=== PATIENT | female | born 1990 | race American Indian/Alaskan Native ===

== ENCOUNTER 2019-01-03 15:17 | Emergency (ER) | payer MEDICAID ==
[~2019-01-03] VITALS: Ht 162.6 cm; Wt 54.4 kg
[~2019-01-03 15:17] MED LIST: AMOX-106 PO; CLIN-90 PO; DIPH-423 PO; HYDR-3965 PO; PENI500T2 PO; PRED20TA PO
[2019-01-03 15:21] VITALS: BP 154/117
[2019-01-03] MEDS ORDERED: METH4TAB3 PO (15:37)
== END 2019-01-03 15:52 | disposition home or self-care (01) ==
LOC: ER 15:18
DX: L23.7 Allergic contact dermatitis due to plants, except food (principal); G89.29 Other chronic pain; F12.90 Cannabis use, unspecified, uncomplicated; Z98.890 Other specified postprocedural states
CPT/HCPCS: 99283

== ENCOUNTER 2019-01-16 21:48 | Emergency (ER) | payer MEDICAID ==
[~2019-01-16] VITALS: Ht 162.6 cm; Wt 54.0 kg
[~2019-01-16 21:48] MED LIST changes: -CLIN-90 PO; +CLIN-96 PO; +METH4TAB3 PO
[2019-01-16 22:01] VITALS: BP 165/115
--- NOTE | 2019-01-16 23:02 | NUR ---
PT REFUSED EKG
== END 2019-01-16 23:11 | disposition left against medical advice (07) ==
LOC: ER 21:49
DX: R07.81 Pleurodynia (principal); G89.29 Other chronic pain; F12.90 Cannabis use, unspecified, uncomplicated; Z98.890 Other specified postprocedural states; Z79.2 Long term (current) use of antibiotics; Z79.899 Other long term (current) drug therapy
CPT/HCPCS: 71046; 99283

== ENCOUNTER 2019-09-16 09:48 | Emergency (ER) | payer MEDICAID ==
[~2019-09-16] VITALS: Ht 162.6 cm; Wt 62.0 kg
[~2019-09-16 09:48] MED LIST changes: -CLIN-96 PO; +CLIN-97 PO
--- NOTE | 2019-09-16 10:12 | NUR ---
ANN-MARIE DOSS AT BS
[2019-09-16 10:52] LABS: BASOPHILS # (AUTO) 0.1 X10'3 (0-0.2); EOSINOPHILS # (AUTO) 0.1 X10'3 (0-0.9); EOSINOPHILS % (AUTO) 0.7 % (0-6); HEMATOCRIT 44.8 % (35.0-45.0); LYMPHOCYTES # (AUTO) 2.6 X10'3 (1.1-4.8); LYMPHOCYTES % (AUTO) 29.6 % (21-51); MEAN CORPUSCULAR HEMOGLOBIN 31.9 PG (27.0-31.0); MEAN CORPUSCULAR HGB CONC 33.5 g/dL (33.0-36.5); MEAN CORPUSCULAR VOLUME 95.2 FL (78-98); MEAN PLATELET VOLUME 7.9 FL (7.4-10.4); MONOCYTES # (AUTO) 0.5 X10'3 (0-0.9); MONOCYTES % (AUTO) 5.4 % (2-12); NEUTROPHILS # (AUTO) 5.7 X10'3 (1.8-7.7); NEUTROPHILS % (AUTO) 63.3 % (42-75); PLATELET COUNT 267 X10'3 (140-440); WHITE BLOOD COUNT 8.9 X10'3 (4.5-11.0)
[2019-09-16 11:02] LABS: ALANINE AMINOTRANSFERASE 12 U/L (12-78); ALBUMIN 1.8 G/DL (3.4-5.0); ALBUMIN/GLOBULIN RATIO 0.4 (1.1-1.5); ALKALINE PHOSPHATASE 103 IU/L (46-116); ANION GAP 12 (8-16); ASPARTATE AMINO TRANSFERASE 36 U/L (10-37); BILIRUBIN,TOTAL 0.3 MG/DL (0.1-1.0); BLOOD UREA NITROGEN 14 MG/DL (7-18); CALCIUM 7.8 MG/DL (8.5-10.1); CHLORIDE 104 MMOL/L (99-107); CREATININE 1.74 MG/DL (0.40-0.90); GLUCOSE 96 MG/DL (70-104); POTASSIUM 3.6 MMOL/L (3.5-5.1); SODIUM 136 MMOL/L (135-145); TOTAL CARBON DIOXIDE 20.5 MMOL/L (24-32); TOTAL PROTEIN 6.4 G/DL (6.4-8.2); eGFR 34 ML/MIN
[2019-09-16 11:08] LABS: D-DIMER 12.67 MG/L FEU (0-0.50)
[2019-09-16 11:43] LABS: CLARITY,URINE CLOUDY (Clear); COLOR,URINE YELLOW (Yellow); GLUCOSE, URINE NEGATIVE (Neg); KETONES,URINE NEGATIVE (Neg); LEUKOCYTE ESTERASE ,URINE MODERATE (Neg); NITRITES, URINE NEGATIVE (Neg); OCCULT BLOOD,URINE MODERATE (Neg); PROTEIN,URINE >=300 mg/dl (Neg); URINE HCG POSITIVE (NEG); UROBILINOGEN,URINE 0.2 E.U/dL (0.2-1.0)
[2019-09-16 11:47] LABS: UA COLLECTION TYPE CLN CATCH MIDSTREAM
[2019-09-16 11:49] LABS: WBC,URINE TNTC /HPF (0-4)
[2019-09-16 11:50] LABS: BACTERIA,URINE 3+ /HPF (Neg); FINE GRANULAR CAST 0-3 /LPF (NEGATIVE); MUCUS STRANDS NONE SEEN /LPF (Neg); SQUAMOUS EPITHELIAL CELL,UR MODERATE /LPF (FEW)
[2019-09-16] MEDS ORDERED: normal saline 1000ML IV soln IVB ONE (11:50)
[2019-09-16 12:20] LABS: LACTATE DEHYDROGENASE 483 U/L (81-234); TROPONIN I < 0.04 NG/ML (0.0-0.05)
[2019-09-16] MEDS ORDERED: hyDRALAzine 10mg tablet PO STA (12:23)
[2019-09-16] MEDS ORDERED: magnesium 2GM in 50ml NS 50 ML IV ONE (12:30)
[2019-09-16] MEDS ORDERED: hydrALAZINE 20mg/ml inj. IV ONE (13:45)
[2019-09-16 16:45] VITALS: BP 151/108
== END 2019-09-16 16:19 | disposition short-term general hospital (02) ==
LOC: ER 09:48
DX: O14.92 Unspecified pre-eclampsia, second trimester (principal); O26.892 Other specified pregnancy related conditions, second trimester; K08.89 Other specified disorders of teeth and supporting structures; G89.29 Other chronic pain; F12.90 Cannabis use, unspecified, uncomplicated; Z98.890 Other specified postprocedural states; Z72.89 Other problems related to lifestyle; Z79.2 Long term (current) use of antibiotics; Z79.899 Other long term (current) drug therapy
CPT/HCPCS: 36415; 71045; 80053; 81001; 81025; 83615; 83880; 84484; 84550; 85025; 85379; 87088; 93005; 96365; 96366; 96375; 99291; J0360; J3475; J7030

== ENCOUNTER 2025-01-12 19:07 | Emergency (ER) | payer MEDICAID ==
[~2025-01-12] VITALS: Ht 162.6 cm; Wt 54.5 kg
[~2025-01-12 19:07] MED LIST changes: +CLIN-224 PO; -CLIN-97 PO
[2025-01-12 19:11] VITALS: BP 233/153; PULSE 99; RESP 18; TEMP 97.9; O2SAT 98
--- NOTE | 2025-01-12 19:30 | Physician Documentation ---
History of Present Illness ~ Chief Complaint: Medical Clearance Stated Complaint: MED CLEARANCE Time Seen by MD: 19:22 Primary Medical Doctor: [facility] Patient is a 34-year-old female brought to the emergency department by [facility] department. Patient is currently in custody [facility] department. She is here for medical clearance so that she can be taken to [facility]. Patient reports that she placed a pouch of methamphetamine into her vagina she was taken to the police department pouch was noted by the nurse at the police department the patient removed the pouch without incident. Patient reports that the methamphetamine was placed in a baggy. She reports that the entire baggy was removed and that she feels no pain discomfort or any residual issues associated with the baggy of methamphetamine placed into or removed from her vagina. Patient denies any fever chills nausea vomiting abnormal bleeding from her vagina blood in her urine abdominal pain or any other symptoms at this time. Patient is medically cleared for incarceration at this time. Tetanus within 5 years?: No Medication Reconciliation Allergies: Coded Allergies: Penicillins (Verified Allergy, Unknown, 01/12/25) Scheduled Amoxicillin Trihydrate (Amoxicillin), 1 CAP PO BID Clindamycin HCL* (Clindamycin HCL*), 1 CAP PO Q6H Methylprednisolone (Medrol), 1 DOSPAK PO UD Penicillin V Potassium* (Penicillin VK*), 500 MG PO Q6H Prednisone* (Prednisone*), 2 TAB PO DAILY Scheduled PRN Diphenhydramine Hcl (Benadryl), 25 MG PO Q6H PRN ITCHING PRN for allergies Hydrocodone Bit/Acetaminophen 5/325 MG ([place] 5/325 MG), 1 TAB PO Q4H PRN for moderate or severe pain Hydrocodone Bit/Acetaminophen 5/325 MG ([place] 5/325 MG), 1 TAB PO Q4H PRN for moderate or severe pain Past Medical History Past Medical History: Chronic Back Pain, *INFECTIOUS DZ* Past Surgical History: Alcohol Use: Occasionally Drug Use: marijuana Lives with: Family Lives In: Home Review of Systems ROS As stated above in the HPI, otherwise all systems are reviewed and negative. Physical Exam Vital Signs: Temperature: 97.9, Source: Oral, Heart Rate: 99, Respiratory Rate: 18, BP: 233/153, Pulse Oximetry: 98, Weight: 54.500 Physical Exam VITALS: Reviewed and as above. GENERAL: Alert, no apparent distress. HEENT: Normocephalic, atraumatic, PERRL, EOMI, dry mucosa, no erythema RESPIRATORY: Lungs clear, normal breath sounds, no respiratory distress. CHEST: No accessory muscle use, no retractions CV: Regular rate, rhythm, no edema, no murmur, No: JVD GI: Soft, non-tender, bowels sounds present, no rebound, guarding, or rigidity BACK: No CVA tenderness, or swelling MUSCULOSKELETAL No deformities, no edema SKIN: Warm and dry, no rash NEURO: Oriented x4, No motor or sensory deficit PSYCH: Normal mood and affect, no agitation Progress Results/Orders Results/Orders Vital Signs 01/12/25 19:11 Temp 97.9 Pulse 99 Resp 18 B/P (MAP) 233/153 Pulse Ox 98 Medical Decision Making Additional information obtaine: other Findings Patient is a 34-year-old female brought to the emergency department by [facility]. Patient is currently in custody [place] police department. She is here for medical clearance so that she can be taken to [facility]. Patient reports that she placed a pouch of methamphetamine into her vagina she was taken to the police department pouch was noted by the nurse at the police department the patient removed the pouch without incident. Patient reports that the methamphetamine was placed in a baggy. She reports that the entire baggy was removed and that she feels no pain discomfort or any residual issues associated with the baggy of methamphetamine placed into or removed from her vagina. Patient denies any fever chills nausea vomiting abnormal bleeding from her vagina blood in her urine abdominal pain or any other symptoms at this time. Patient is medically cleared for incarceration at this time. Differential Dx:Considerations: Include: Intoxication-Alcohol, Intoxication- Other drug, Personality disorder, Substance abuse disorder, Acute delirium, Closed head injury, Cervical spine injury, Skull fracture, Fracture(s), Abrasion, Contusion, Foreign body, Hematoma, Laceration, Alcohol withdrawl syndrom, Encephalopathy, Hepatitis, Medically stable, Other Departure Disposition: 01 HOME / SELF CARE / HOMELESS Impression: Primary Impression: General medical exam Additional Impression: Medical clearance for incarceration Discharge Instructions: Medical Screening Exam Additional Instructions: Patient is a 34-year-old female brought to the emergency department by [facility]. Patient is currently in custody [place] police department. She is here for medical clearance so that she can be taken to [facility]. Patient reports that she placed a pouch of methamphetamine into her vagina she was taken to the police department pouch was noted by the nurse at the police department the patient removed the pouch without incident. Patient reports that the methamphetamine was placed in a baggy. She reports that the entire baggy was removed and that she feels no pain discomfort or any residual issues associated with the baggy of methamphetamine placed into or removed from her vagina. Patient denies any fever chills nausea vomiting abnormal bleeding from her vagina blood in her urine abdominal pain or any other symptoms at this time. Patient is medically cleared for incarceration at this time. Referrals: NO PRIMARY CARE PROVIDER (PCP) Education Educated: Patient Educated regarding: diagnosis, treatment, need for follow up Signature Scribe Signature: A Attestation: Scribed for Anamaria Mccartney by BIANCA Sheikh . 01/12/25 19:30 ANAMARIA MCCARTNEY Jan 12, 2025 19:30
== END 2025-01-12 19:38 | disposition home or self-care (01) ==
LOC: ER 19:08
DX: Z02.89 Encounter for other administrative examinations (principal); F12.90 Cannabis use, unspecified, uncomplicated; Z88.0 Allergy status to penicillin
CPT/HCPCS: 99283